=== PATIENT | male | born 1995 | race Caucasian/White ===

== ENCOUNTER 2019-02-27 00:16 | Emergency (ER) | payer BC ==
[~2019-02-27] VITALS: Ht 177.8 cm; Wt 74.8 kg
[2019-02-27] MEDS ORDERED: LIDOCAINE HCL 1% LOCAL INJ 20 ML VIAL INJ ONE (00:30)
[2019-02-27] MEDS ORDERED: TETANUS/DIPHTHERIA TOX ADULT 0.5 ML SYR IM ONE (00:30)
--- NOTE | 2019-02-27 00:38 | NUR ---
ER MD AT BEDSIDE FOR SUTURE PLACEMENT
[2019-02-27] MEDS ORDERED: BACITRACIN ZINC 0.9GM TP ONE (01:00)
== END 2019-02-27 00:56 | disposition home or self-care (01) ==
LOC: ER 00:16
DX: S01.111A Laceration without foreign body of right eyelid and periocular area, initial encounter (principal); W50.0XXA Accidental hit or strike by another person, initial encounter; Y92.008 Other place in unspecified non-institutional (private) residence as the place of occurrence of the external cause; F17.210 Nicotine dependence, cigarettes, uncomplicated
CPT/HCPCS: 12011; 90471; 90714; 99283; J2001